=== PATIENT | female | born 1945 | race African-American/Black ===

== ENCOUNTER 2020-12-20 09:47 | Outpatient (CLI) | payer MEDICARE, MEDICAID | END 2020-12-20 09:48 | disposition home or self-care (01) | LOC: BURRAD 09:47 | PROVIDERS: ATTEND Physician Assistant | DX: R29.898 Other symptoms and signs involving the musculoskeletal system (principal); M50.322 Other cervical disc degeneration at C5-C6 level; M47.812 Spondylosis without myelopathy or radiculopathy, cervical region; M53.82 Other specified dorsopathies, cervical region | CPT/HCPCS: 72040 ==